=== PATIENT | female | born 1960 | race Hispanic/Latino ===

== ENCOUNTER 2018-04-09 12:10 | Outpatient (RCR) | payer OTHER | END 2018-04-10 | LOC: OT 12:10 | PROVIDERS: ATTEND Orthopaedic Surgery | DX: M65.312 Trigger thumb, left thumb (principal); M65.322 Trigger finger, left index finger; M65.342 Trigger finger, left ring finger; M65.321 Trigger finger, right index finger; M65.341 Trigger finger, right ring finger ==

== ENCOUNTER 2018-05-01 10:00 | Outpatient (RCR) | payer OTHER | END 2018-05-11 | LOC: OT 10:00 | PROVIDERS: ATTEND Orthopaedic Surgery | DX: M65.312 Trigger thumb, left thumb (principal); M65.322 Trigger finger, left index finger; M65.352 Trigger finger, left little finger; M65.342 Trigger finger, left ring finger; M65.321 Trigger finger, right index finger; M65.341 Trigger finger, right ring finger; M65.331 Trigger finger, right middle finger ==